=== PATIENT | male | born 1975 | race African-American/Black ===

== ENCOUNTER 2022-04-23 14:24 | Inpatient (IN) | payer OTHER, MEDICAID ==
[~2022-04-23] VITALS: Ht 167.6 cm; Wt 104.8 kg
[~2022-04-23 14:24] MED LIST: BACL-141 MT; BENZ1TAB7 MT; CEPH500C2 MT; CLON1TAB23 MT; DOCU-150 MT; DULO30CA52 MT; ESCI-7 MT; FLUO10CA28 MT; HALO5TAB PO; METF-414 PO; MIRT-89 PO; MULT-1146 MT; OLAN20TA34 MT; TRAZ-251 MT
[2022-04-23 19:46] LABS: BASOPHILS % 0.4 % (0.0-2.0); EOSINOPHILS % 0.9 % (0.0-5.0); HEMATOCRIT. 43.4 % (42.0-52.0); HEMOGLOBIN. 14.8 g/dL (14.0-18.0); LYMPHOCYTES % 19.6 % (20.0-50.0); MEAN CORPUSCULAR HEMOGLOBIN 30.1 pg (28.0-32.0); MEAN CORPUSCULAR VOLUME 88.3 fL (80.0-94.0); MEAN PLATELET VOLUME 7.5 fl (7.4-10.4); MONOCYTES % 6.1 % (2.0-8.0); PLATELET 225 x1000/uL (130-400); RED BLOOD CELL COUNT 4.91 mill/uL (4.7-6.1)
[2022-04-23 19:49] LABS: CHLORIDE 105 mEq/L (98-107)
[2022-04-23 19:56] LABS: CREATINE KINASE 361 IU/L (39-308)
[2022-04-23] MEDS ORDERED: SODIUM CHLORIDE 0.9% 1,000 ML IV ONE (23:15)
[2022-04-24] MEDS ORDERED: IPRATROPIUM/ALBUTEROL 0.5-3(2.5)MG/3ML NEB HHN PRN (02:45)
[2022-04-24] MEDS ORDERED: CLONIDINE 0.1MG TABLET PO PRN (02:45)
[2022-04-24] MEDS ORDERED: ACETAMINOPHEN 325MG TABLET PO PRN ×2 (02:45)
[2022-04-24] MEDS ORDERED: MAGNESIUM/ALUMINUM HYDROXIDE/SIMETHICONE 30ML UDC PO PRN (02:45)
[2022-04-24] MEDS ORDERED: CLONAZEPAM 1MG TABLET PO PRN (03:00)
[2022-04-24] MEDS ORDERED: METHYLPREDNISOLONE SOD SUCC 1,000 MG in DEXT 5% WATER 100 ML IV NR (07:00)
[2022-04-24] MEDS: HALOPERIDOL 5MG TABLET PO SCH (11:50)
[2022-04-24] MEDS: ENOXAPARIN 40MG/0.4ML SYR SUBCUT SCH (11:50)
[2022-04-24] MEDS: BACLOFEN 10MG TABLET PO SCH ×2 (11:51→18:14)
[2022-04-24] MEDS: FAMOTIDINE 20MG TABLET PO SCH ×2 (11:51→21:45)
[2022-04-24] MEDS: FLUOXETINE HCL 10 MG CAPSULE PO SCH (11:51)
[2022-04-24] MEDS: METFORMIN HCL 500MG TABLET PO SCH (11:52)
[2022-04-24] MEDS: DULOXETINE HCL 30MG DR CAPSULE PO SCH (11:52)
[2022-04-24] MEDS: BENZTROPINE MESYLATE 1MG TABLET PO SCH ×2 (11:55→18:14)
[2022-04-24 12:00] VITALS: BP_SYST 150; BP_DIAS 100; BP_DIAS 102
[2022-04-24 16:00] VITALS: BP 125/78
[2022-04-24 17:38] LABS: CREATINE KINASE 244 IU/L (39-308)
[2022-04-24 17:53] LABS: T4 FREE 0.95 ng/dL (0.76-1.46)
[2022-04-24 20:00] VITALS: BP 116/73
[2022-04-24] MEDS: MIRTAZAPINE 15MG TABLET PO SCH (21:45)
[2022-04-24] MEDS: OLANZAPINE 10MG TABLET PO SCH (21:46)
[2022-04-24] MEDS: TRAZODONE HCL 50MG TABLET PO SCH (21:46)
[2022-04-25] VITALS: BP 107/68
[2022-04-25 04:00] VITALS: BP 109/71
[2022-04-25 08:00] VITALS: BP 130/81
[2022-04-25 08:25] LABS: HEMATOCRIT. 41.8 % (42.0-52.0); HEMOGLOBIN. 14.3 g/dL (14.0-18.0); MEAN CORPUSCULAR HEMOGLOBIN 29.7 pg (28.0-32.0); MEAN PLATELET VOLUME 7.5 fl (7.4-10.4); PLATELET 239 x1000/uL (130-400); RED BLOOD CELL COUNT 4.81 mill/uL (4.7-6.1); RED CELL DISTRIBUTION WIDTH 13.2 % (11.6-14.6)
[2022-04-25 10:19] LABS: CHLORIDE 102 mEq/L (98-107)
[2022-04-25 10:53] LABS: PLATELET ESTIMATE NORMAL
[2022-04-25] MEDS: DULOXETINE HCL 30MG DR CAPSULE PO SCH (11:35)
[2022-04-25] MEDS: FAMOTIDINE 20MG TABLET PO SCH ×2 (11:35→21:36)
[2022-04-25] MEDS: HALOPERIDOL 5MG TABLET PO SCH (11:36)
[2022-04-25] MEDS: FLUOXETINE HCL 10 MG CAPSULE PO SCH (11:36)
[2022-04-25] MEDS: METFORMIN HCL 500MG TABLET PO SCH (11:36)
[2022-04-25] MEDS: BACLOFEN 10MG TABLET PO SCH ×3 (11:37→16:37)
[2022-04-25] MEDS: ENOXAPARIN 40MG/0.4ML SYR SUBCUT SCH (11:37)
[2022-04-25] MEDS: BENZTROPINE MESYLATE 1MG TABLET PO SCH ×2 (11:37→16:36)
[2022-04-25 12:00] VITALS: BP 105/65
[2022-04-25] MEDS: DOCUSATE SODIUM 100MG CAPSULE PO PRN (15:02)
[2022-04-25 16:00] VITALS: BP 114/75
[2022-04-25 20:00] VITALS: BP 103/56
[2022-04-25] MEDS: OLANZAPINE 10MG TABLET PO SCH (21:36)
[2022-04-25] MEDS: MIRTAZAPINE 15MG TABLET PO SCH (21:36)
[2022-04-25] MEDS: TRAZODONE HCL 50MG TABLET PO SCH (21:36)
[2022-04-26] VITALS: BP 118/79
[2022-04-26 04:00] VITALS: BP 123/78
[2022-04-26 07:58] VITALS: BP 122/80
[2022-04-26] MEDS: ENOXAPARIN 40MG/0.4ML SYR SUBCUT SCH (09:00)
[2022-04-26] MEDS: HALOPERIDOL 5MG TABLET PO SCH (09:17)
[2022-04-26] MEDS: BENZTROPINE MESYLATE 1MG TABLET PO SCH ×2 (09:17→18:10)
[2022-04-26] MEDS: METFORMIN HCL 500MG TABLET PO SCH (09:17)
[2022-04-26] MEDS: FLUOXETINE HCL 10 MG CAPSULE PO SCH (09:17)
[2022-04-26] MEDS: DULOXETINE HCL 30MG DR CAPSULE PO SCH (09:17)
[2022-04-26] MEDS: BACLOFEN 10MG TABLET PO SCH ×3 (09:18→18:10)
[2022-04-26 12:00] VITALS: BP 104/70
[2022-04-26 16:00] VITALS: BP 104/69
[2022-04-26 20:00] VITALS: BP 106/67
[2022-04-26] MEDS: TRAZODONE HCL 50MG TABLET PO SCH (21:10)
[2022-04-26] MEDS: OLANZAPINE 10MG TABLET PO SCH (21:10)
[2022-04-26] MEDS: MIRTAZAPINE 15MG TABLET PO SCH (21:10)
[2022-04-27] VITALS: BP 142/65
[2022-04-27 04:00] VITALS: BP 155/62
[2022-04-27 08:00] VITALS: BP 102/71
[2022-04-27] MEDS: DULOXETINE HCL 30MG DR CAPSULE PO SCH (08:31)
[2022-04-27] MEDS: BACLOFEN 10MG TABLET PO SCH ×3 (08:31→18:11)
[2022-04-27] MEDS: BENZTROPINE MESYLATE 1MG TABLET PO SCH ×2 (08:31→17:00)
[2022-04-27] MEDS: FLUOXETINE HCL 10 MG CAPSULE PO SCH (08:31)
[2022-04-27] MEDS: METFORMIN HCL 500MG TABLET PO SCH (08:31)
[2022-04-27] MEDS: HALOPERIDOL 5MG TABLET PO SCH (08:31)
[2022-04-27 12:00] VITALS: BP 116/73
[2022-04-27 16:00] VITALS: BP 118/79
[2022-04-27 20:00] VITALS: BP 111/85
[2022-04-27] MEDS: OLANZAPINE 10MG TABLET PO SCH (20:50)
[2022-04-27] MEDS: MIRTAZAPINE 15MG TABLET PO SCH (20:50)
[2022-04-27] MEDS: TRAZODONE HCL 50MG TABLET PO SCH (20:50)
[2022-04-28 04:00] VITALS: BP 98/59
[2022-04-28 08:00] VITALS: BP 110/70
[2022-04-28] MEDS: BENZTROPINE MESYLATE 1MG TABLET PO SCH ×2 (09:51→18:39)
[2022-04-28] MEDS: DULOXETINE HCL 30MG DR CAPSULE PO SCH (09:51)
[2022-04-28] MEDS: ENOXAPARIN 40MG/0.4ML SYR SUBCUT SCH (09:52)
[2022-04-28] MEDS: FLUOXETINE HCL 10 MG CAPSULE PO SCH (09:52)
[2022-04-28] MEDS: HALOPERIDOL 5MG TABLET PO SCH (09:52)
[2022-04-28] MEDS: METFORMIN HCL 500MG TABLET PO SCH (09:52)
[2022-04-28] MEDS: BACLOFEN 10MG TABLET PO SCH ×3 (09:52→18:39)
[2022-04-28 12:00] VITALS: BP 105/69
[2022-04-28 16:00] VITALS: BP 119/84
[2022-04-28] MEDS: DOCUSATE SODIUM 100MG CAPSULE PO PRN (18:39)
[2022-04-28 19:28] VITALS: BP 119/84
[2022-04-28] MEDS: OLANZAPINE 10MG TABLET PO SCH (20:18)
[2022-04-28] MEDS: TRAZODONE HCL 50MG TABLET PO SCH (20:18)
[2022-04-28] MEDS: MIRTAZAPINE 15MG TABLET PO SCH (20:18)
[2022-04-29] VITALS: BP 99/68
[2022-04-29 04:00] VITALS: BP 127/78
[2022-04-29 08:00] VITALS: BP 109/77
[2022-04-29] MEDS: METFORMIN HCL 500MG TABLET PO SCH (09:40)
[2022-04-29] MEDS: BENZTROPINE MESYLATE 1MG TABLET PO SCH ×2 (09:40→17:34)
[2022-04-29] MEDS: BACLOFEN 10MG TABLET PO SCH ×3 (09:40→17:34)
[2022-04-29] MEDS: HALOPERIDOL 5MG TABLET PO SCH (09:41)
[2022-04-29] MEDS: ENOXAPARIN 40MG/0.4ML SYR SUBCUT SCH (09:41)
[2022-04-29] MEDS: DULOXETINE HCL 30MG DR CAPSULE PO SCH (09:41)
[2022-04-29] MEDS: DOCUSATE SODIUM 100MG CAPSULE PO PRN (09:41)
[2022-04-29] MEDS: FLUOXETINE HCL 10 MG CAPSULE PO SCH (09:41)
[2022-04-29 12:00] VITALS: BP 109/74
[2022-04-29 16:00] VITALS: BP 115/76
[2022-04-29 20:00] VITALS: BP 112/77
== END 2022-04-29 21:10 | DRG 59 ==
LOC: ER 14:24 → MICUSO 04-24 01:30 → 6EST 04-24 08:47
PROVIDERS: ADMIT Internal Medicine; ATTEND Internal Medicine
DX: G35 Multiple sclerosis (principal); K59.2 Neurogenic bowel, not elsewhere classified; F17.210 Nicotine dependence, cigarettes, uncomplicated; F20.9 Schizophrenia, unspecified; G83.9 Paralytic syndrome, unspecified; Z20.822 Contact with and (suspected) exposure to COVID-19; Z92.241 Personal history of systemic steroid therapy; N31.9 Neuromuscular dysfunction of bladder, unspecified
CPT/HCPCS: 36415; 80053; 80061; 82550; 83036; 84439; 84443; 85025; 85651; 87426; 92523; 93005; 97110; 97162; 97166; 97530; 97535; 99285; J1630; J1650; J2930; J7030; J7060